=== PATIENT | female | born 1975 | race African-American/Black ===

== ENCOUNTER 2019-05-18 13:39 | Observation (INO) | payer SELFPAY ==
[~2019-05-18] VITALS: Ht 157.5 cm; Wt 99.8 kg
== END 2019-05-18 18:30 | disposition home or self-care (01) ==
LOC: 8 EST LDRP 13:39 → 8 EST A/PP 14:23
PROVIDERS: ADMIT Obstetrics & Gynecology; ATTEND Obstetrics & Gynecology
DX: O36.8330 Maternal care for abnormalities of the fetal heart rate or rhythm, third trimester, not applicable or unspecified (principal); Z3A.35 35 weeks gestation of pregnancy
CPT/HCPCS: 76805; 76818; 99281; G0378